=== PATIENT | female | born 1960 | race Caucasian/White ===

== ENCOUNTER 2016-11-28 11:41 | Emergency (ER) | payer OTHER ==
[~2016-11-28] VITALS: Ht 180.3 cm; Wt 72.1 kg
[2016-11-28 14:33] VITALS: BP 143/94
== END 2016-11-28 14:35 | disposition home or self-care (01) ==
LOC: EME 11:41
DX: S71.112A Laceration without foreign body, left thigh, initial encounter (principal); W55.12XA Struck by horse, initial encounter; Y93.01 Activity, walking, marching and hiking
CPT/HCPCS: 73552; 99281; 99284

== ENCOUNTER 2018-01-23 11:14 | Emergency (ER) | payer OTHER ==
[~2018-01-23] VITALS: Ht 180.3 cm; Wt 64.1 kg
[2018-01-23 11:58] LABS: HEMATOCRIT 41.9 % (36.0-46.0); HEMOGLOBIN 13.9 G/DL (11.9-15.5); MCHC 33.2 G/DL (30.0-36.0); MCV 90.3 FL (83-99); PLATELET COUNT 238 K/uL (156-360); RBC DIS.WIDTH-CV 12.8 % (11.8-14.6); RBC DIS.WIDTH-SD 41.9 % (39-53); RED BLOOD COUNT 4.64 M/uL (3.80-5.20); WHITE BLOOD COUNT 10.6 K/uL (4.1-10.2)
[2018-01-23 12:06] LABS: ALBUMIN 4.3 g/dL (3.2-4.8); CHLORIDE 108 mEq/L (99-109); POTASSIUM 4.2 mEq/L (3.7-5.4); SODIUM 144 mEq/L (136-147)
[2018-01-23 12:09] LABS: GLUCOSE 110 mg/dL (70-99); TOTAL PROTEIN 6.9 g/dL (6.4-8.3)
[2018-01-23 12:11] LABS: TOTAL BILIRUBIN 0.5 mg/dL (0.0-1.0)
[2018-01-23 12:12] LABS: ALKALINE PHOSPHATASE 58 IU/L (3-129); CREATININE 0.9 mg/dL (0.6-1.3); GFR ESTIMATE (CALCULATED) > 59 mL/min/
[2018-01-23 12:13] LABS: UREA NITROGEN (BUN) 24 mg/dL (9-23)
[2018-01-23 12:14] LABS: AST (GOT) 101 IU/L (2-34)
[2018-01-23 12:15] LABS: ALT (GPT) 68 IU/L (3-49)
[2018-01-23 13:20] LABS: APPEARANCE CLEAR ((CLEAR)); BILIRUBIN NEGATIVE; BLOOD MODERATE; COLOR STRAW ((YELLOW)); GLUCOSE (STRIP) NEGATIVE; KETONES NEGATIVE; LEUKOCYTES NEGATIVE; NITRITE NEGATIVE; PROTEIN (STRIP) 30; UROBILINOGEN 0.2 MG/DL (0.2-1.0)
[2018-01-23 13:23] LABS: BACTERIA RARE /HPF; EPITHELIAL CELLS RARE /HPF; MUCUS TRACE /LPF; RED BLOOD CELLS 40-50 /HPF (0-5); UCUL ADDED? NO; WHITE BLOOD CELLS 0-5 /HPF (0-5)
[2018-01-23] MEDS ORDERED: ZOFRAN ODT4 MG PO (13:54)
[2018-01-23] MEDS ORDERED: TRAMADOL HCL E100 M1 PO (13:54)
[2018-01-23 14:13] VITALS: BP 142/98
== END 2018-01-23 14:14 | disposition home or self-care (01) ==
LOC: TRA 11:14
PROVIDERS: Emergency Medicine
DX: S22.42XA Multiple fractures of ribs, left side, initial encounter for closed fracture (principal); S30.0XXA Contusion of lower back and pelvis, initial encounter; R10.9 Unspecified abdominal pain; V80.010A Animal-rider injured by fall from or being thrown from horse in noncollision accident, initial encounter; Y93.52 Activity, horseback riding; R11.0 Nausea; M25.78 Osteophyte, vertebrae; M47.892 Other spondylosis, cervical region
CPT/HCPCS: 70450; 71260; 72125; 74177; 80053; 81003; 85027; 99281; 99285; J7040